=== PATIENT | female | born 1990 | race Two or more races ===

== ENCOUNTER 2024-07-16 17:44 | Observation (INO) | payer MEDICAID, SELFPAY ==
[2024-07-16] VITALS (8 sets, daily range): BP systolic 138–167; BP diastolic 70–93; PULSE 76–101; RESP 16–98; TEMP 37.4; BMI 35.7
[2024-07-16] MEDS: RINGERS LACTATED 1000 ML 1,000 ML 999 ML IV (19:09)
[2024-07-16 19:20] LABS: Collection Type, Urine Clean Catch; RBC,Urine 0 /hpf (0-3)
[2024-07-16 19:23] LABS: Basophils # (Auto) 0.1 Thou/mm3 (0.0-0.2); Basophils % (Auto) 1 % (0-2.5); Eosinophils # (Auto) 0.1 Thou/mm3 (0.0-0.5); Eosinophils % (Auto) 1 % (0-10); Hematocrit 37.4 % (36.0-46.0); Hemoglobin 12.8 g/dL (12.0-16.0); Immature Granulocytes % (Auto) 0 % (0-0); Immature Granulocytes Auto 0.04 Thou/mm3 (0.00-0.00); Lymphocytes % (Auto) 29 % (10-50); Mean Corpuscular HGB Conc 34.2 g/dl (31.0-37.0); Mean Corpuscular Hemoglobin 27.9 pg (25.0-35.0); Mean Corpuscular Volume 82 fL (80-100); Monocytes # (Auto) 0.7 Thou/mm3 (0.0-0.8); Monocytes % (Auto) 6 % (0-12); Neutrophils # (Auto) 6.5 Thou/mm3 (1.8-7.7); Neutrophils % (Auto) 63 % (37-80); Nucleated Red Blood Cell % 0 /100 WBC (0); Platelet Count 294 Thou/mm3 (140-440); RDW Standard Deviation 43.5 fL (36.4-46.3); Red Blood Count 4.58 Miln/mm3 (4.00-5.20); White Blood Count 10.4 Thou/mm3 (3.6-11.0)
[2024-07-16 19:37] LABS: Bacteria,Urine 1+; Bilirubin,Urine Negative (Negative); Blood,Urine Negative (Negative); Clarity,Urine Turbid (Clear/Hazy); Color,Urine Lt-Yellow (Lt Yel-Yel); Glucose, Urine Negative (Negative); Ketones,Urine Negative (Negative); Leukocyte Esterase,Urine Positive (Negative); Nitrite,Urine Negative (Negative); PH,Urine 6.5 (5.0-7.0); Protein,Urine Negative (Neg - Trace); Specific Gravity,Urine 1.008 (1.001-1.035); Squamous Epithelial Cell,Urine 11 /hpf (0-5); Urobilinogen,Urine Negative mg/dL (0.0-1.0); WBC,Urine 5 /hpf (0-5)
[2024-07-16 19:42] LABS: INR 0.9 (0.9-1.3); Partial Thromboplastin Time 24.2 Seconds (22.0-36.0); Prothrombin Time 10.3 Seconds (9.0-12.2)
[2024-07-16 19:45] LABS: Alanine Aminotransferase 11 U/L (10-49); Albumin, Serum 4.4 gm/dL (3.5-5.0); Albumin/Globulin Ratio 1.8 (1.2-2.2); Alkaline Phosphatase 190 U/L (46-116); Anion Gap 10 (7-16); Aspartate Amino Transferase 18 U/L (0-34); BUN/Creatinine Ratio 15 Ratio (12-20); Bilirubin,Total 0.4 mg/dL (0.3-1.2); Blood Urea Nitrogen 9 mg/dL (9-23); Calcium 9.7 mg/dL (8.3-10.6); Calcium (Corrected) 9.7 mg/dL (8.5-10.1); Carbon Dioxide 23.7 mMol/L (20.0-31.0); Chloride 105 mMol/L (98-107); Creatinine (Component) 0.6 mg/dL (0.6-1.3); Estimated Creatinine Clearance 147.2 mL/min (>60); Globulin 2.4 gm/dL (2.3-3.5); Glucose 116 mg/dL (74-106); LDH (Lactate Dehydrogenase) 157 U/L (120-246); Osmolality,Calculated 277 (275-295); Potassium 3.7 mMol/L (3.4-5.1); Sodium 139 mMol/L (136-145); Total Protein 6.8 gm/dL (5.7-8.2); Uric Acid 4.6 mg/dL (3.1-7.8); eGFR > 60 See Note
[2024-07-16 20:03] LABS: Syphilis Nonreactive (Nonreactive)
== END 2024-07-16 20:11 | disposition home or self-care (01) ==
PROVIDERS: Admitting Provider Obstetrics & Gynecology; PCP Family Medicine; Visit Provider Obstetrics & Gynecology
DX: O47.1 False labor at or after 37 completed weeks of gestation (principal); Z3A.37 37 weeks gestation of pregnancy
CPT/HCPCS: 36415; 59025; 59899; 80053; 81001; 83615; 84550; 85025; 85610; 85730; 86780; 86850; 86900; 86901; J7120

== ENCOUNTER 2024-07-17 05:15 | Inpatient (IN) | payer MEDICAID, SELFPAY ==
[2024-07-17] VITALS (101 sets, daily range): BP systolic 0–200; BP diastolic 0–112; PULSE 69–134; RESP 18–98; TEMP 36.7–37.4; O2SAT 91–100; BMI 36.4; BMI 34.2
[2024-07-17] MEDS: RINGERS LACTATED 1000 ML 1,000 ML 100 ML IV (05:45)
[2024-07-17] MEDS: TERBUTALINE SULF INJ 1 MG/ML VIAL 0.25 MG SC (06:26)
[2024-07-17] MEDS: RINGERS LACTATED 1000 ML 1,000 ML 125 ML IV ×2 (08:22→21:16)
[2024-07-17] MEDS: CITRIC ACID/SODIUM CITR 15 ML UDC (BICITRA) 30 ML PO (10:03)
[2024-07-17] MEDS: FAMOTIDINE INJ 10 MG/ML VIAL 2 ML 20 MG IV (10:03)
[2024-07-17] MEDS: GENTAMICIN/NS 80 MG IVPB 80 MG/50 ML PIGGYBACK 50 MG IV (10:09)
[2024-07-17] MEDS: METOCLOPRAMIDE INJ 5 MG/ML VIAL 2 ML IVP (10:10)
--- NOTE | 2024-07-17 10:22 | PD.LDHP ---
Documentation for date of: 07/17/24 OB Labor/Induct. HPI History of Present Illness History of sections: Yes History of present illness: 33-year-old 2 para 1-0-0-1 at 38 weeks presents to the triage complaining of contractions today morning under a different provider shift. Patient has previous history of x 1 on arrival patient had elevated blood pressures consistent in severe range. Patient admits that she presented yesterday with similar complaints and was sent home as she made no cervical change. Patient denies of any headache, blurry vision, chest pain History of Present Dating criteria: LMP confirmed by 2nd trimester US Adequate Care: Yes Labs Labs: Negative: Hepatitis B, HIV, Chlamydia and Gonorrhea and Unknown: Group Beta Strep Narrative: GDM screen negative NIPT negative Past Medical History Surgical History SURGICAL: Positive Section Meds Home Medications and Allergies Allergies Allergy/AdvReac Type Severity Reaction Status Date / Time cephalexin Allergy Verified 07/16/24 19:13 OB Exam Physical Exam Vital signs: Temp Pulse Resp BP Pulse Ox 98.0 F 107 H 20 156/84 H 93 L 07/17/24 05:18 07/17/24 07:32 07/17/24 05:18 07/17/24 07:32 07/17/24 10:19 Constitutional Constitutional: no acute distress Routine HEENT Exam Head: Present normocephalic and atraumatic Eye: Present EOMI and PERRL ENT: Present mucous membranes moist Routine Neck Exam Neck: Present supple and trachea midline Routine Cardiovascular Exam Cardiovascular: Present RRR Routine Abdominal Exam Abdominal: Present soft and normoactive bowel sounds Routine Extremities Exam Extremities: Present full ROM Routine Skin Exam Skin: Present intact, dry and warm Routine Neurological Exam Neurological: Present alert, oriented X3 and CN II-XII intact Routine Psychiatric Exam Psychiatric: Present normal affect and normal thought process OB Results Impressions Impression: 33-year-old 2 para 1-0-0-1, previous x 1, admitted for repeat low-transverse On admission severe range blood pressures(patient was not treated for the same) Denies any preeclampsia symptoms Current blood pressure within normal limit OB Assessment & Plan Additional Plan Additional Plan Comment: Boarded for repeat low-transverse Any further severe range blood pressure will mandate starting of magnesium sulfate and treatment with antihypertensive
[2024-07-17] MEDS: CLINDAMYCIN 900MG IVPB 900 MG in PRE-MIXED 1 BAG 50 MG IV (10:40)
[2024-07-17] MEDS: OXYTOCIN in NS 20 UNIT/1,000 ML BAG IV (11:50)
[2024-07-17 12:19] LABS: Basophils # (Auto) 0.1 Thou/mm3 (0.0-0.2); Basophils % (Auto) 0 % (0-2.5); Eosinophils % (Auto) 0 % (0-10); Hematocrit 34.1 % (36.0-46.0); Hemoglobin 11.5 g/dL (12.0-16.0); Immature Granulocytes % (Auto) 0 % (0-0); Immature Granulocytes Auto 0.03 Thou/mm3 (0.00-0.00); Lymphocytes # (Auto) 2.4 Thou/mm3 (1.0-4.8); Lymphocytes % (Auto) 20 % (10-50); Mean Corpuscular HGB Conc 33.7 g/dl (31.0-37.0); Mean Corpuscular Hemoglobin 28.4 pg (25.0-35.0); Mean Corpuscular Volume 84 fL (80-100); Monocytes # (Auto) 0.6 Thou/mm3 (0.0-0.8); Monocytes % (Auto) 5 % (0-12); Neutrophils # (Auto) 8.9 Thou/mm3 (1.8-7.7); Neutrophils % (Auto) 74 % (37-80); Nucleated Red Blood Cell % 0 /100 WBC (0); Platelet Count 269 Thou/mm3 (140-440); RDW Standard Deviation 45.1 fL (36.4-46.3); Red Blood Count 4.05 Miln/mm3 (4.00-5.20)
[2024-07-17 12:38] LABS: Fibrinogen 427 mg/dL (175-375); Partial Thromboplastin Time 25.6 Seconds (22.0-36.0); Prothrombin Time 10.9 Seconds (9.0-12.2)
[2024-07-17 12:54] LABS: Alanine Aminotransferase < 7 U/L (10-49); Albumin, Serum 3.6 gm/dL (3.5-5.0); Albumin/Globulin Ratio 1.8 (1.2-2.2); Alkaline Phosphatase 157 U/L (46-116); Anion Gap 8 (7-16); Aspartate Amino Transferase 16 U/L (0-34); BUN/Creatinine Ratio 14 Ratio (12-20); Bilirubin,Total 0.4 mg/dL (0.3-1.2); Blood Urea Nitrogen 7 mg/dL (9-23); Calcium 9.3 mg/dL (8.3-10.6); Calcium (Corrected) 9.6 mg/dL (8.5-10.1); Carbon Dioxide 24.9 mMol/L (20.0-31.0); Chloride 107 mMol/L (98-107); Creatinine (Component) 0.5 mg/dL (0.6-1.3); Estimated Creatinine Clearance 184.2 mL/min (>60); Glucose 91 mg/dL (74-106); Osmolality,Calculated 277 (275-295); Potassium 4.6 mMol/L (3.4-5.1); Sodium 140 mMol/L (136-145); Total Protein 5.6 gm/dL (5.7-8.2); Uric Acid 4.4 mg/dL (3.1-7.8); eGFR > 60 See Note
[2024-07-17] MEDS: LABETALOL INJ 5 MG/ML VIAL 20 ML 20 MG IVP (13:52)
[2024-07-17] MEDS: Magnesium Sulfate 2 GM Ivpb 2 GM/50 ML BAG IV (14:00)
[2024-07-17] MEDS: Magnesium Sulfate 4 GM Ivpb 4 GM/50 ML BAG IV (14:00)
[2024-07-17] MEDS: MAGNESIUM SULF 20 GM IVPB 20 GM/500 ML BAG IV (14:20)
[2024-07-17] MEDS: KETOROLAC INJ 30 MG/ML VIAL IVP ×2 (15:20→22:43)
[2024-07-17 16:50] LABS: Basophils # (Auto) 0.1 Thou/mm3 (0.0-0.2); Basophils % (Auto) 1 % (0-2.5); Eosinophils # (Auto) 0.1 Thou/mm3 (0.0-0.5); Eosinophils % (Auto) 0 % (0-10); Hematocrit 33.4 % (36.0-46.0); Hemoglobin 11.1 g/dL (12.0-16.0); Immature Granulocytes % (Auto) 0 % (0-0); Immature Granulocytes Auto 0.06 Thou/mm3 (0.00-0.00); Lymphocytes # (Auto) 3.1 Thou/mm3 (1.0-4.8); Lymphocytes % (Auto) 23 % (10-50); Mean Corpuscular HGB Conc 33.2 g/dl (31.0-37.0); Mean Corpuscular Hemoglobin 27.8 pg (25.0-35.0); Mean Corpuscular Volume 84 fL (80-100); Monocytes # (Auto) 0.8 Thou/mm3 (0.0-0.8); Monocytes % (Auto) 6 % (0-12); Neutrophils # (Auto) 9.3 Thou/mm3 (1.8-7.7); Neutrophils % (Auto) 70 % (37-80); Nucleated Red Blood Cell % 0 /100 WBC (0); Platelet Count 254 Thou/mm3 (140-440); RDW Standard Deviation 44.6 fL (36.4-46.3); White Blood Count 13.3 Thou/mm3 (3.6-11.0)
[2024-07-17] MEDS: LABETALOL 100 MG TABLET 400 MG PO (16:57)
[2024-07-17 17:13] LABS: Magnesium 3.3 mg/dL (1.6-2.6)
--- NOTE | 2024-07-17 17:22 | PD.LDDELS ---
Data (Rachel) Data Hx Section: Yes : 2 Para: 1 Term: 1 : 0 : 0 Delivery Data (Rachel) Labor Data ROM Date: 07/17/24 ROM Time: 10:50 Rupture Type: AROM Amniotic Fluid: Clear Delivery Data Labor Onset Stage 1 Date: 07/17/24 Labor Onset Stage 1 Time: 10:52 Labor Onset Stage 2 Date: 07/17/24 Labor Onset Stage 2 Time: 10:52 Delivery Date: 07/17/24 Delivery Time: 10:52 Gestational age (weeks): 38 Placenta Delivery Date: 07/17/24 Placenta Delivery Time: 10:53 Delivered by: Ladonna Hardy Delivery nurse: Nannette Jon Other staff at delivery: Nursery Nurse Other staff at delivery: Amber Levine Delivery Method Delivery: Delivery Type: Primary Anesthesia Type Primary Anesthesia: Spinal Delivery Room Medications Other Intrapartum Medications: Yes Placenta Placenta Delivery: Manual Cord Sample: Cord Blood Obtained EBL Estimated blood loss (ml): 400 Umbilical Cord Umbilical Vessels: 3 Nuchal Cord: None Body Cord: None Data (Rachel) Data Gender: Male Infant Weight Grams: 3740 1 Minute Total: 9 5 Minute Total: 9
--- NOTE | 2024-07-17 17:24 | ESOP_ITS ---
Operative Note - PELLETISING EXTRUDER OPERATOR Procedure Date of procedure: 07/17/24 Procedure Performed: repeat low transverse Csection Indication: previous Csection x1 induced HTN Pre-Op diagnosis: SAME Post-Op diagnosis: Same Anesthesia type: Spinal Procedure description: Informed consent was obtained and the patient was taken to the operating room.? Identity was confirmed by double identifiers and she was placed on the operating table.The abdomen and perineum were prepped in the usual sterile fashion and a Cordova catheter was placed to continuous drainage.? Sterile drapes were applied.??A Pfannenstiel skin incision was made with a scalpel and carried to the subcutaneous fat up to the rectus fascia.? The rectus fascia was incised on either side of the midline and the incisions were extended bilaterally.? The fascia was gently dissected off the ventral surface of the rectus muscle both superiorly and inferiorly. There was no anatomica plane between jillian rectus sheath, muscle and peritoneum. Carefully a peritioneal window craeted and after ruling out adhesion of bowel and bladder it was extended . . The baby was cephalic position delivered via vertex umbilical cord , was doubly clamped, divided and the was handed over to the waiting team.? placenta delivered by controlled cord traction . The interior of the uterus was now thorougly cleaned of all blood and debris and membranes.? The? hysterotomy was closed using 0 vicryl suture in double layers. Once the repair was completed the hysterotomy was inspected, was noted to be adequately hemostatic . Muscle oozing stopped by bovie. The rectus fascia was repaired using Vicry 0 in a running fashion.? The subcutaneous layer was now, approximated with 3-0 vicryl in double layers.? All bleeding points were cauterized using the Bovie.?The skin was closed using 4-0 Monocryl in a subcuticular fashion.? The skin was cleaned and a sterile dressing was applied. The patient was now undraped, the abdomen and back were thoroughly cleaned and she was now transferred to the recovery room in a stable Estimated blood loss (ml): 400 Surgical staff Operation Date: 07/17/24 10:15 Case Staff BINITROTOLUENE OPERATOR: Bravo Silva RN First Assistant: Ivis Ruano Diagnosis Problem List Completed Was Problem List Reviewed/Reconciled?: Yes
[2024-07-17 18:26] LABS: Collection Type, Urine Catheter
[2024-07-17 19:01] LABS: Bilirubin,Urine Negative (Negative); Blood,Urine 2+ (Negative); Clarity,Urine Clear (Clear/Hazy); Color,Urine Lt-Yellow (Lt Yel-Yel); Glucose, Urine Negative (Negative); Ketones,Urine Negative (Negative); Leukocyte Esterase,Urine Negative (Negative); Nitrite,Urine Negative (Negative); PH,Urine 7.5 (5.0-7.0); Protein,Urine Trace (Neg - Trace); RBC,Urine 104 /hpf (0-3); Specific Gravity,Urine 1.011 (1.001-1.035); Squamous Epithelial Cell,Urine 1 /hpf (0-5); Urobilinogen,Urine Negative mg/dL (0.0-1.0); WBC,Urine 5 /hpf (0-5)
[2024-07-17 19:04] LABS: Creatinine,Random Urine 40 mg/dL (30-125); Protein Total, Random Urine 66 mg/dL (1-14)
[2024-07-17 23:16] LABS: Magnesium 3.5 mg/dL (1.6-2.6)
[2024-07-18] VITALS (15 sets, daily range): BP systolic 119–151; BP diastolic 65–91; PULSE 80–103; RESP 17–25; TEMP 36.6–36.9; O2SAT 94–98
[2024-07-18] MEDS: MAGNESIUM SULF 20 GM IVPB 20 GM/500 ML BAG IV (03:15)
[2024-07-18 05:43] LABS: Magnesium 3.9 mg/dL (1.6-2.6)
[2024-07-18] MEDS: KETOROLAC INJ 30 MG/ML VIAL IVP (06:41)
[2024-07-18] MEDS: LABETALOL 100 MG TABLET 400 MG PO ×2 (09:18→20:12)
[2024-07-18 12:06] LABS: Magnesium 3.4 mg/dL (1.6-2.6)
--- NOTE | 2024-07-18 14:53 | ESPR_ITS ---
Subjective Subjective Interval history: patient has been doing well, no headache , npo fever , no chest pain , blurred vision Exam Vital Signs Temp Pulse Resp BP Pulse Ox O2 Del Method 98.5 F 86 19 119/65 97 Room Air 07/18/24 11:45 07/18/24 11:45 07/18/24 11:45 07/18/24 11:45 07/18/24 11:45 07/18/24 11:45 Constitutional Constitutional: no acute distress Routine HEENT Exam Head: Present normocephalic and atraumatic Eye: Present EOMI and PERRL ENT: Present mucous membranes moist Routine Neck Exam Neck: Present supple and trachea midline Routine Respiratory Exam Respiratory: Present chest non-tender, lungs clear, normal breath sounds and no resp distress Routine Cardiovascular Exam Cardiovascular: Present RRR Routine Abdominal Exam Abdominal: Present soft and normoactive bowel sounds Routine Extremities Exam Extremities: Present full ROM Routine Skin Exam Skin: Present intact, dry and warm Routine Neurological Exam Neurological: Present alert, oriented X3 and CN II-XII intact Routine Psychiatric Exam Psychiatric: Present normal affect and normal thought process Objective Labs 07/17/24 16:22 07/17/24 12:05 Labs: Laboratory Results - last 24 hr 07/17/24 07/17/24 07/17/24 11:45 15:43 16:22 WBC 13.3 H RBC 4.00 Hgb 11.1 L Hct 33.4 L MCV 84 MCH 27.8 MCHC 33.2 RDW Std Deviation 44.6 Plt Count 254 Neut % (Auto) 70 Lymph % (Auto) 23 [place] % (Auto) 6 Eos % (Auto) 0 Baso % (Auto) 1 Neut # (Auto) 9.3 H Lymph # (Auto) 3.1 [place] # (Auto) 0.8 Eos # (Auto) 0.1 Baso # (Auto) 0.1 Immature Gran # (Auto) 0.06 H Absolute Nucleated RBC 0.00 Immature Gran % 0 Nucleated RBC % 0 Magnesium 3.3 H Ur Collection Type Catheter Urine Color Lt-Yellow Urine Clarity Clear Urine pH 7.5 H Ur Specific [place] 1.011 Urine Protein Trace Urine Glucose (UA) Negative Urine Ketones Negative Urine Blood 2+ A Urine Nitrite Negative Urine Bilirubin Negative Urine Urobilinogen (Auto) Negative Ur Leukocyte Esterase Negative Urine RBC 104 H Urine WBC 5 Ur Squamous Epith Cells 1 Urine Bacteria None Ur Random Creatinine 40 U Random Total Protein 66 H 07/17/24 07/18/24 07/18/24 22:37 05:04 10:54 WBC RBC Hgb Hct MCV MCH MCHC RDW Std Deviation Plt Count Neut % (Auto) Lymph % (Auto) [place] % (Auto) Eos % (Auto) Baso % (Auto) Neut # (Auto) Lymph # (Auto) [place] # (Auto) Eos # (Auto) Baso # (Auto) Immature Gran # (Auto) Absolute Nucleated RBC Immature Gran % Nucleated RBC % Magnesium 3.5 H 3.9 H 3.4 H Ur Collection Type Urine Color Urine Clarity Urine pH Ur Specific [place] Urine Protein Urine Glucose (UA) Urine Ketones Urine Blood Urine Nitrite Urine Bilirubin Urine Urobilinogen (Auto) Ur Leukocyte Esterase Urine RBC Urine WBC Ur Squamous Epith Cells Urine Bacteria Ur Random Creatinine U Random Total Protein Assessment & Plan Assessment Comment Assessment comment: 33 y/o S/P RLTCS , severe precalmpsia , POD#1 Magnesium for 24 hours fotr seizure prevention BP 140s, On labetalol 400 BID Plan Comment Plan Comment: MAG TO BE DISCONTINUED 24 HRS AFTER DELIVERY Continue PO care anticipate discharge tomorrow Time Spent With Patient Time: Total time spent is greater than 50% in coordination of care (as documented) at patient's floor/unit and/or counseling patient:
[2024-07-18 17:10] LABS: Magnesium 2.3 mg/dL (1.6-2.6)
[2024-07-18] MEDS: IBUPROFEN TAB 400 MG TABLET 800 MG PO (19:16)
--- NOTE | 2024-07-19 04:56 | PD.GYNPROC ---
Operative Note - BUFFER INFLATED PAD Procedure Date of procedure: 07/19/24 Procedure Performed: Primary low-transverse Indication: Chronic hypertension, uncontrolled Suspicion of placental abruption Category 2 heart tones Morbid obesity Pre-Op diagnosis: Same Post-Op diagnosis: Same Anesthesia type: Spinal Procedure description: Informed consent was obtained and the patient was taken to the operating room.? Identity was confirmed by double identifiers and she was placed on the operating table.The abdomen and perineum were prepped in the usual sterile fashion and a Cordova catheter was placed to continuous drainage.? Sterile drapes were applied.??A Pfannenstiel skin incision was made with a scalpel and carried to the subcutaneous fat up to the rectus fascia.? The rectus fascia was incised on either side of the midline and the incisions were extended bilaterally.? The fascia was gently dissected off the ventral surface of the rectus muscle both superiorly and inferiorly.. Carefully a peritioneal window craeted and after ruling out adhesion of bowel and bladder it was extended . Hysterotomy incision done on rupture of membranes gross bloody amniotic fluid was seen along with about 500 cc of blood clot. The baby was cephalic position delivered via vertex umbilical cord , was doubly clamped, divided and the was handed over to the waiting team.? placenta delivered by controlled cord traction . The interior of the uterus was now thorougly cleaned of all blood and debris and membranes.? Given patient's morbid obesity 2 assistants were required to achieve adequate exposure uterus was exteriorized anterior of the uterus was again cleaned. The? hysterotomy was closed using 0 vicryl suture in double layers. Once the repair was completed the hysterotomy was inspected, was noted to be adequately hemostatic . Muscle oozing stopped by bovie. The rectus fascia was repaired using PDS in a running fashion.? The subcutaneous layer was now, approximated with 3-0 vicryl in double layers.? All bleeding points were cauterized using the Bovie.?The skin was closed using 4-0 Monocryl in a subcuticular fashion.? The skin was cleaned and a sterile dressing was applied. The patient was now undraped, the abdomen and back were thoroughly cleaned and she was now transferred to the recovery room in a stable Estimated blood loss (ml): 1,000 Surgical staff Operation Date: 07/17/24 10:15 Case Staff SUPERINTENDENT DRILLING AND PRODUCTION: Bravo Silva RN First Assistant: Ivis Ruano Diagnosis Problem List Completed Was Problem List Reviewed/Reconciled?: Yes
[2024-07-19 08:50] VITALS: BP 157/83; PULSE 87; RESP 17; TEMP 36.8; O2SAT 98
[2024-07-19 08:57] VITALS: BP 157/83; PULSE 87
[2024-07-19] MEDS: LABETALOL 100 MG TABLET 400 MG PO ×2 (08:57→20:38)
--- NOTE | 2024-07-19 09:54 | PD.LDPPPRG ---
Subjective Subjective Interval history: Visit done with patient's nurse, who provided Mongolian translation. Ban is doing really well. She notes pain is well controlled. She is ambulating no lightheadedness. Tolerating regular diet no n/v. Has already had a BM. Spontaneously voiding without issue. She denies MCCARTY/vision changes/RUQ pain. Lochia is minimal. Baby is under bili light so she desires to stay another day with baby. Exam Vital Signs Temp Pulse Resp BP Pulse Ox O2 Del Method 98.2 F 87 17 157/83 H 98 Room Air 07/19/24 08:50 07/19/24 08:57 07/19/24 08:50 07/19/24 08:57 07/19/24 08:50 07/19/24 08:50 Narrative Exam General: well developed, well nourished, no acute distress, conversant Cardiac: normal heart rate Lungs: breathing without distress Abdomen: soft, post-gravid, non-tender, no rebound or guarding, non-distended. Pfannenstiel incision covered by dry/intact/clean dressing. No erythema/induration/drainage. Extremities: no pain with palpation of calves, trace edema BLE Objective Labs 07/17/24 16:22 07/17/24 12:05 Labs: Laboratory Results - last 24 hr 07/18/24 07/18/24 10:54 16:39 Magnesium 3.4 H 2.3 Assessment & Plan Problem List (1) Pre-eclampsia: Status: Acute (2) History of delivery: Status: Acute Assessment Comment Assessment comment: Ban is a 33y/o female s/p RLTCS at term when she presented with contractions and severe range bp's, diagnosed with pre-eclampsia w/severe features, doing well on POD#2. She is s/p 24hr of IV MgSO4 for seizure prevention, bp's normal to mild range on labetalol 400mg PO BID. She has no s/sx of worsening pre-E. Hemodynamically stable with no evidence of infection. Plan Comment Plan Comment: -Baby is under bili light and patient s/p tx for pre-eclampsia with severe features, so will plan for discharge home tomorrow -Continue current pain management with motrin and prn norco -Regular diet -Continue close observation of bp's -Encourage ambulation and use of IS -Anticipate discharge home tomorrow Time Spent With Patient Time: Total time spent is greater than 50% in coordination of care (as documented) at patient's floor/unit and/or counseling patient:
--- NOTE | 2024-07-19 11:17 | PC.LAC ---
Set breast pump up for mom, went over attachments and how to use pump. Stated she should be pumping every 2-3 hours double pumping and to start with hand massage to active let down of milk. spoke through handwriting expert, mom understood.
[2024-07-19 11:20] VITALS: BP 146/93; PULSE 77; RESP 18; TEMP 36.7; O2SAT 99
[2024-07-19] MEDS: IBUPROFEN TAB 400 MG TABLET 800 MG PO (13:03)
[2024-07-19 15:10] VITALS: BP 146/86; PULSE 78; RESP 18; TEMP 36.6; O2SAT 97
[2024-07-19 20:38] VITALS: BP 160/90; PULSE 73
[2024-07-19 21:41] VITALS: BP 160/90; PULSE 73; RESP 16; TEMP 36.7; O2SAT 98
[2024-07-20] VITALS (28 sets, daily range): BP systolic 114–187; BP diastolic 70–99; PULSE 65–94; RESP 17–24; TEMP 36.4–36.9; O2SAT 95–99
[2024-07-20] MEDS: IBUPROFEN TAB 400 MG TABLET 800 MG PO ×2 (01:52→17:03)
[2024-07-20] MEDS: LABETALOL INJ 5 MG/ML VIAL 20 ML 20 MG IVP ×2 (05:19→19:46)
[2024-07-20] MEDS: NIFEdipine XL 30 MG TABCR PO ×2 (08:02→16:57)
[2024-07-20 09:10] LABS: Basophils # (Auto) 0.1 Thou/mm3 (0.0-0.2); Basophils % (Auto) 1 % (0-2.5); Eosinophils # (Auto) 0.3 Thou/mm3 (0.0-0.5); Eosinophils % (Auto) 3 % (0-10); Hematocrit 30.2 % (36.0-46.0); Hemoglobin 10.3 g/dL (12.0-16.0); Immature Granulocytes % (Auto) 1 % (0-0); Immature Granulocytes Auto 0.08 Thou/mm3 (0.00-0.00); Lymphocytes % (Auto) 23 % (10-50); Mean Corpuscular HGB Conc 34.1 g/dl (31.0-37.0); Mean Corpuscular Hemoglobin 28.1 pg (25.0-35.0); Mean Corpuscular Volume 83 fL (80-100); Monocytes # (Auto) 0.4 Thou/mm3 (0.0-0.8); Monocytes % (Auto) 5 % (0-12); Neutrophils # (Auto) 5.8 Thou/mm3 (1.8-7.7); Neutrophils % (Auto) 67 % (37-80); Nucleated Red Blood Cell % 0 /100 WBC (0); Platelet Count 318 Thou/mm3 (140-440); RDW Standard Deviation 46.4 fL (36.4-46.3); Red Blood Count 3.66 Miln/mm3 (4.00-5.20); White Blood Count 8.7 Thou/mm3 (3.6-11.0)
[2024-07-20 09:35] LABS: Alanine Aminotransferase 18 U/L (10-49); Albumin/Globulin Ratio 1.7 (1.2-2.2); Alkaline Phosphatase 118 U/L (46-116); Anion Gap 9 (7-16); Aspartate Amino Transferase 47 U/L (0-34); BUN/Creatinine Ratio 17 Ratio (12-20); Bilirubin,Total 0.4 mg/dL (0.3-1.2); Blood Urea Nitrogen 10 mg/dL (9-23); Calcium 9.3 mg/dL (8.3-10.6); Calcium (Corrected) 9.3 mg/dL (8.5-10.1); Carbon Dioxide 25.7 mMol/L (20.0-31.0); Chloride 107 mMol/L (98-107); Creatinine (Component) 0.6 mg/dL (0.6-1.3); Estimated Creatinine Clearance 153.5 mL/min (>60); Globulin 2.4 gm/dL (2.3-3.5); Glucose 79 mg/dL (74-106); Osmolality,Calculated 281 (275-295); Potassium 4.8 mMol/L (3.4-5.1); Sodium 142 mMol/L (136-145); Total Protein 6.4 gm/dL (5.7-8.2); eGFR > 60 See Note
[2024-07-20] MEDS: LABETALOL 100 MG TABLET 600 MG PO ×2 (09:51→22:49)
[2024-07-20] MEDS: Furosemide 20 MG TABLET PO (11:51)
[2024-07-20] MEDS: LABETALOL INJ 5 MG/ML VIAL 20 ML 40 MG IVP (20:06)
[2024-07-20] MEDS: LABETALOL INJ 5 MG/ML VIAL 20 ML 80 MG IVP (20:25)
--- NOTE | 2024-07-20 20:30 | PC.NURSE ---
Rochelle RN aware of all orders placed. Rochelle to draw Magnesium baseline level, start Magnesium Sulfate 4gm bolus followed by 2gm/hr x12 hours. Follow Severe HTN and Magnesium Sulfate protocols. Place Cordova cath and leave in while on Magnesium Sulfate. Bedrest x12 hours.
[2024-07-20] MEDS: Magnesium Sulfate 4 GM Ivpb 4 GM/50 ML BAG IV (20:53)
[2024-07-20 21:08] LABS: Magnesium 1.8 mg/dL (1.6-2.6)
[2024-07-20] MEDS: MAGNESIUM SULF 20 GM IVPB 20 GM/500 ML BAG IV (21:28)
--- NOTE | 2024-07-20 22:07 | PD.LDPPPRG ---
Subjective Subjective Interval history: Retroactive note for this morning. Visit done this morning with RN who translated Mosotho. Ban is doing well overall. She denies vision changes, MCCARTY or RUQ pain. Notes incisional pain is very manageable and improving. She is ambulating without lightheadedness, tolerating regular diet, spontaneously voiding without issue. Passing gas. Exam Vital Signs Temp Pulse Resp BP Pulse Ox O2 Del Method 98.3 F 71 18 131/78 H 97 Room Air 07/20/24 21:38 07/20/24 21:38 07/20/24 21:38 07/20/24 21:38 07/20/24 21:38 07/20/24 21:38 Narrative Exam General: well developed, well nourished, no acute distress, conversant Cardiac: normal heart rate Lungs: breathing without distress Abdomen: soft, post-gravid, non-tender, no rebound or guarding, pfannenstiel incision covered by dry/clean/intact prineo bandage Extremities: no pain with palpation of calves, 1+ edema of BLE Objective Labs 07/20/24 08:56 07/20/24 08:56 Labs: Laboratory Results - last 24 hr 07/20/24 07/20/24 08:56 20:29 WBC 8.7 RBC 3.66 L Hgb 10.3 L Hct 30.2 L MCV 83 MCH 28.1 MCHC 34.1 RDW Std Deviation 46.4 H Plt Count 318 D Neut % (Auto) 67 Lymph % (Auto) 23 [place] % (Auto) 5 Eos % (Auto) 3 Baso % (Auto) 1 Neut # (Auto) 5.8 Lymph # (Auto) 2.0 [place] # (Auto) 0.4 Eos # (Auto) 0.3 Baso # (Auto) 0.1 Immature Gran # (Auto) 0.08 H Absolute Nucleated RBC 0.00 Immature Gran % 1 H Nucleated RBC % 0 Sodium 142 Potassium 4.8 Chloride 107 Carbon Dioxide 25.7 Anion Gap 9 BUN 10 Creatinine 0.6 Estim Creat Clear Calc 153.5 eGFR > 60 BUN/Creatinine Ratio 17 Glucose 79 Calculated Osmolality 281 Calcium 9.3 Corrected Calcium 9.3 Magnesium 1.8 Total Bilirubin 0.4 AST 47 H ALT 18 Alkaline Phosphatase 118 H D Total Protein 6.4 Albumin 4.0 Globulin 2.4 Albumin/Globulin Ratio 1.7 Assessment & Plan Problem List (1) Pre-eclampsia: Status: Acute (2) History of delivery: Status: Acute Assessment Comment Assessment comment: Ban is a 33y/o female s/p RLTCS at term when she presented with contractions and severe range bp's, diagnosed with pre-eclampsia w/severe features, doing well on POD#3. She is s/p 24hr of IV MgSO4 for seizure prevention, bp's high mild range (150's systolic) overnight on labetalol 400mg PO BID. She has no s/sx of worsening pre-E. Hemodynamically stable with no evidence of infection. Plan: -Will add nifedipine 30mg PO daily to labetalol 400mg PO BID regimen and continue to observe bp's today. If well controlled, may be able to leave in evening. -Continue current pain management with motrin and prn norco -Regular diet -Encourage ambulation and use of IS Yisel Sher MD Time Spent With Patient Time: Total time spent is greater than 50% in coordination of care (as documented) at patient's floor/unit and/or counseling patient:
[2024-07-21] VITALS (16 sets, daily range): BP systolic 108–152; BP diastolic 51–90; PULSE 73–97; RESP 18–24; TEMP 36.6–36.9; O2SAT 95–98
[2024-07-21] MEDS: HYDROcodone/APAP 5/325 TABLET 1 TAB PO (00:47)
[2024-07-21 02:44] LABS: Magnesium 4.1 mg/dL (1.6-2.6)
[2024-07-21] MEDS: NIFEdipine XL 30 MG TABCR PO (07:47)
[2024-07-21] MEDS: IBUPROFEN TAB 400 MG TABLET 800 MG PO (07:47)
[2024-07-21] MEDS: MAGNESIUM SULF 20 GM IVPB 20 GM/500 ML BAG IV (07:57)
[2024-07-21 08:40] LABS: Magnesium 4.5 mg/dL (1.6-2.6)
[2024-07-21] MEDS: LABETALOL 100 MG TABLET 600 MG PO (09:46)
[2024-07-21 10:25] LABS: Basophils % (Auto) 1 % (0-2.5); Eosinophils # (Auto) 0.3 Thou/mm3 (0.0-0.5); Eosinophils % (Auto) 4 % (0-10); Hemoglobin 11.9 g/dL (12.0-16.0); Immature Granulocytes % (Auto) 0 % (0-0); Immature Granulocytes Auto 0.02 Thou/mm3 (0.00-0.00); Lymphocytes # (Auto) 1.7 Thou/mm3 (1.0-4.8); Lymphocytes % (Auto) 25 % (10-50); Mean Corpuscular Hemoglobin 28.3 pg (25.0-35.0); Mean Corpuscular Volume 83 fL (80-100); Monocytes # (Auto) 0.4 Thou/mm3 (0.0-0.8); Monocytes % (Auto) 6 % (0-12); Neutrophils # (Auto) 4.4 Thou/mm3 (1.8-7.7); Neutrophils % (Auto) 65 % (37-80); Nucleated Red Blood Cell % 0 /100 WBC (0); Platelet Count 353 Thou/mm3 (140-440); RDW Standard Deviation 46.6 fL (36.4-46.3); Red Blood Count 4.21 Miln/mm3 (4.00-5.20); White Blood Count 6.7 Thou/mm3 (3.6-11.0)
--- NOTE | 2024-07-21 14:22 | PD.LDDS ---
DS: Providers Provider Date of admission: 07/17/24 05:56 Primary care physician: Physician No Primary/Family Admitting Provider: Julio Pettit MD Attending Provider on Admission: Ladonna Hardy MD Consults: 07/17/24 10:29 Referral Routine Comment: Attending Provider on DC: Yisel Sher MD Discharging Provider: Yisel Sher MD DS: Diagnosis Discharge Diagnosis (1) History of delivery: Status: Acute (2) Pre-eclampsia: Status: Acute Problem List Completed Was Problem List Reviewed/Reconciled?: Yes Summary/Hosp Course Brief History: Ban is a 33y/o female s/p RLTCS at term when she presented with contractions and severe range bp's, diagnosed with pre-eclampsia w/severe features, doing well on POD#4. She had an initial 24hr of IV MgSO4 for seizure prevention. However, on POD 3 despite increasing anti-HTN PO meds to regimen of labetalol 400mg PO BID and nifedipine 30mg PO BID, she had recurrent severe range bp's requiring 3 total doses of IV labetalol and thus she received another 12hr course of IV MgSO4. Since IV MgSO4 was discontinued this morning and she received labetalol 600mg PO BID and nifedipine 30mg PO BID, she has remained normotensive. PIH labs repeated yesterday were overall wnl. She has no further s/sx of worsening pre-E. Hemodynamically stable with no evidence of infection. Plan: -Discharge home -Rx to her pharmacy: nifedipine 30mg PO BID and labetalol 600mg PO BID as well as motrin 800mg PO Q8hr prn pain, norco 5/325mg 1 tab PO Q4hr prn pain, and colace 100mg PO BID for bowel regimen -Follow up in 3 days with OBGYN for bp check. Will also need bandage removed at 1 week lubna. -Keep incision clean and dry. No driving while taking narcotic. No heavy lifting and vaginal rest 6 weeks. -Discussed post-op/post- and pre-eclampsia return precautions Yisel Sher MD Peripartum Data Procedures: Procedures Operation Date: 07/17/24 10:15 Actual Procedure Side Surgeon p in OB Ladonna Hardy MD Status at Discharge Functional status at discharge: independent ambulation Overall status at discharge: patient is back to baseline Time Spent with Patient Time attestation: Total time spent providing and/or coordinating discharge services: Exam Vital Signs Temp Pulse Resp BP Pulse Ox O2 Del Method 98.4 F 79 20 125/73 97 Room Air 07/21/24 11:30 07/21/24 14:00 07/21/24 14:00 07/21/24 14:00 07/21/24 14:00 07/21/24 14:00 Narrative Exam General: well developed, well nourished, no acute distress, conversant Cardiac: normal heart rate Lungs: breathing without distress Abdomen: soft, post-gravid, non-tender, no rebound or guarding, pfannenstiel incision covered by dry/clean/intact prineo bandage Extremities: no pain with palpation of calves, trace edema of BLE Discharge Plan Plan Patient Disposition: HOME (Self Care) Patient condition on transfer: Stable Health Concerns: History of prior section s/p uncomplicated repeat low transverse section Pre-eclampsia with severe features Prescriptions/Referrals Prescriptions/Med Rec: New nifedipine 30 mg Tablet Extended Release 24hr 30 mg PO BID 30 Days Qty: 60 0RF hydrocodone-acetaminophen 5-325 mg Tablet 1 tab PO Q4HR MDD 6 tabs PRN (Reason: Patient rated pain 7 to 8) 10 Days Qty: 12 0RF ibuprofen 800 mg tablet 800 mg PO Q8H PRN (Reason: pain) Qty: 20 0RF labetalol 300 mg tablet 600 mg PO BID Qty: 60 0RF docusate sodium [Colace] 100 mg capsule 100 mg PO BID Qty: 30 0RF Referrals: No Primary/Family,Physician [Primary Care Provider] - Patient/Caregiver Discharge Instructions Discharge Activity: activity as tolerated and other Other Discharge Activity Instructions:: Hacer cullen con la Dra. Hardy en stephanie newsome. Descanzo vaginal no levantar mas de 10 libras por 6 semanas, no manejar mientras tome narcoticos Vaginal rest and no heavy lifting greater than 10 pounds for 6 weeks. No driving while taking narcotic. Other Discharge Diet Instructions: Regular diet Education Materials: Understanding Preeclampsia, , The Benefits of Breastmilk, : Caring for Yourself, C Section Dc Print Language: Greenlandic Activity Restrictions/Additional Instructions: Keep incision clean and dry. Bandage will be removed at office appointment within 1 week. Stand Alone Forms: [facility] Award Info., Patient Portal Info Letter Discharge Order Discharge Orders: Discharge (Routine); Ordered 07/21/24 Ordered By: Yisel Sher Planned Discharge Date 07/21/24 (2) Pre-eclampsia Qualifiers: Trimester: third trimester Qualified Code(s): O14.93 - Unspecified pre-eclampsia, third trimester
--- NOTE | 2024-07-21 15:38 | PC.NURSE ---
Patient discharged home with mother. Vitals and bleeding WNL. Pt up ad malou and voiding post parker. Patient denies any preeclampsia and or magnesium toxicity symptoms at this time. Discharge education reviewed with patient including precautions and reasons to return. Patient instructed to follow up with OB at next scheduled appt on 07/27. Interperter used. Patient verbalzies understanding, all questions answered and encouraged.
== END 2024-07-21 15:09 | disposition home or self-care (01) | DRG 540 ==
LOC: S4SX 10:19 → S4NX 10:27
PROVIDERS: Obstetrics & Gynecology; Admitting Provider Obstetrics & Gynecology; Visit Provider Student in an Organized Health Care Education/Training Program
PROC: 10D00Z1 Extraction of Products of Conception, Low, Open Approach (ICD-10-PCS; CPT 59514; principal; 2024-07-17 10:00)
DX: O34.211 Maternal care for low transverse scar from previous cesarean delivery (principal); O14.15 Severe pre-eclampsia, complicating the puerperium; Z37.0 Single live birth; Z3A.38 38 weeks gestation of pregnancy
CPT/HCPCS: 36415; 59025; 59409; 80053; 81001; 82570; 83735; 84156; 84550; 85025; 85384; 85610; 85730; 86780; 86850; 86900; 86901; 94762; J1580; J1885; J2274; J2590; J2765; J3010; J3105; J3475; J3490; J7120; S0077; A9270; J0736; J1920; J2270